=== PATIENT | female | born 1990 ===

== ENCOUNTER 2021-02-22 08:28 | Emergency (ER) | payer SELFPAY ==
[2021-02-22 10:06] VITALS: BP 140/99
[2021-02-22] MEDS ORDERED: IBUPROFEN 800 MG TAB PO STA (12:17)
--- NOTE | 2021-02-22 12:25 | Emergency Department Report ---
ED General Adult HPI - General Chief complaint: Sore Throat Stated complaint: FLU TEST Time Seen by Provider: 02/22/21 12:15 Source: patient Mode of arrival: Ambulatory Limitations: No Limitations - History of Present Illness Initial comments: 1-year-old -[place] female patient presents with complaints of sore throat and body aches starting this morning. She reports her girlfriend is sick with similar symptoms. She denies any loss of taste or smell, cough, shortness of breath, rashes, or fever. Patient is not vaccinated against COVID-19. She denies any other past medical history. NKDA per patient Severity scale (0 -10): 10 - Related Data Previous Rx's Medication Instructions Recorded Last Taken Type Ibuprofen [Motrin 800 MG tab] 800 mg PO Q8HR PRN #20 tablet 02/22/21 Unknown Rx Loratadine 10 mg PO QDAY #10 tablet 02/22/21 Unknown Rx Allergies Allergy/AdvReac Type Severity Reaction Status Date / Time nut - unspecified Allergy Severe Swelling Verified 02/22/21 10:06 ED Review of Systems ROS: Stated complaint: FLU TEST Other details as noted in HPI Constitutional: malaise. denies: chills, diaphoresis, fever, weakness ENT: throat pain Respiratory: denies: cough, shortness of breath Cardiovascular: denies: chest pain Neurological: denies: headache Hematological/Lymphatic: denies: swollen glands ED Past Medical Hx - Medications Home Medications: Home Medications Medication Instructions Recorded Confirmed Last Taken Type Ibuprofen [Motrin 800 MG tab] 800 mg PO Q8HR PRN #20 tablet 02/22/21 Unknown Rx Loratadine 10 mg PO QDAY #10 tablet 02/22/21 Unknown Rx ED Physical Exam - General Limitations: No Limitations General appearance: alert, in no apparent distress - Head Head exam: Present: atraumatic, normocephalic - Eye Eye exam: Present: normal appearance. Absent: scleral icterus - Expanded ENT Exam Expanded Mouth exam: Absent: drooling, trismus, muffled voice Throat exam: Positive: tonsillar erythema (Mild bilateral). Negative: tonsillomegaly, tonsillar exudate, R peritonsillar mass, L peritonsillar mass - Neck Neck exam: Present: normal inspection, full ROM. Absent: tenderness, lymphadenopathy - Respiratory Respiratory exam: Present: normal lung sounds bilaterally. Absent: respiratory distress - Cardiovascular Cardiovascular Exam: Present: regular rate - Neurological Exam Neurological exam: Present: alert, oriented X3 - Psychiatric Psychiatric exam: Present: normal affect, normal mood - Skin Skin exam: Present: warm, dry, intact, normal color. Absent: rash ED Course Vital Signs 02/22/21 10:05 Temperature 97.9 F Pulse Rate 65 Respiratory 16 Rate Blood Pressure 140/99 O2 Sat by Pulse 100 Oximetry ED Medical Decision Making - Medical Decision Making 1-year-old -[place] female patient presents with complaints of sore throat and body aches starting this morning. She reports her girlfriend is sick with similar symptoms. She denies any loss of taste or smell, cough, shortness of breath, rashes, or fever. Patient is not vaccinated against COVID-19. She denies any other past medical history. NKDA per patient Mild tonsillar erythema noted on exam without exudates or swelling. Rapid strep is negative. Will treat for viral pharyngitis conservatively. Recommend patient gets outpatient COVID-19 testing within the next 24 to 48 hours and self quarantine's until further instructed. She is otherwise well-appearing, her vitals are stable, she is stable for discharge home. Strict return precautions were discussed in detail with patient who verbalizes understanding. Patient also recommended to PCP for recheck of her blood pressure Critical care attestation.: If time is entered above; I have spent that time in minutes in the direct care of this critically ill patient, excluding procedure time. ED Disposition Clinical Impression: Viral pharyngitis, Elevated blood pressure reading without diagnosis of hypertension Disposition: 01 HOME / SELF CARE / HOMELESS Is pt being admited?: No Condition: Stable Instructions: Pharyngitis, [id number], Hypertension, Adult Additional Instructions: You test for strep throat is negative Please ensure you get tested for Covid 19 within the next 24 to 48 hours and self quarantine until your results are back The prescribed medications will help treat your symptoms of sore throat and body aches Please ensure you are drinking plenty of water and taking vitamin C to help boost your immune system Your blood pressure was noted to be mildly elevated today, please follow-up with your primary care doctor within 3 to 5 days for repeat blood pressure check Prescriptions: Loratadine 10 mg PO QDAY #10 tablet Ibuprofen [Motrin 800 MG tab] 800 mg PO Q8HR PRN #20 tablet PRN Reason: pain Referrals: PRIMARY CARE, [Primary Care Provider] - 3-5 Days [facility] [Provider Group] - 3-5 Days Forms: Work/School Release Form(ED)
== END 2021-02-22 13:59 | disposition home or self-care (01) ==
LOC: ED 08:28
DX: J02.8 Acute pharyngitis due to other specified organisms (principal); R03.0 Elevated blood-pressure reading, without diagnosis of hypertension
CPT/HCPCS: 87116; 87430; 99283